=== PATIENT | female | born 1985 | race Caucasian/White ===

== ENCOUNTER 2017-03-18 11:44 | Inpatient (IN) | payer OTHER ==
[~2017-03-18] VITALS: Ht 165.1 cm; Wt 75.9 kg
[2017-03-18 12:45] LABS: BASOPHIL % 0.6 % (0-2); PLATELET COUNT 154 x10^3mcL (130-400); RED CELL DISTRIBUTION WIDTH 13.2 % (11.5-14.5)
[2017-03-18 12:48] LABS: CALCIUM 8.7 mg/dL (8.5-10.1); CARBON DIOXIDE 25.7 mmol/L (21-32); CHLORIDE SERUM 106 mmol/L (98-107); CREATININE SERUM 0.8 mg/dL (0.6-1.0); GFR1 > 60 mL/min; GLUCOSE SERUM 113 mg/dL (74-106); POTASSIUM SERUM 3.6 mmol/L (3.5-5.1); SODIUM SERUM 140 mmol/L (136-145)
[2017-03-18 12:51] LABS: microscopic required? YES; urine erythrocyte TRACE (NEGATIVE)
[2017-03-18 12:53] LABS: ALBUMIN 3.6 g/dL (3.4-5.0); ALKALINE PHOSPHATASE 459 U/L (46-116); ALT/SGPT 621 U/L (14-59); AST/SGOT 444 U/L (15-37); BILIRUBIN TOTAL 2.05 mg/dL (0.20-1.00); LIPASE 170 IU/L (73-393); TOTAL PROTEIN, SERUM 7.8 g/dL (6.4-8.2)
[2017-03-18 16:34] VITALS: BP 117/69
[2017-03-18 18:47] VITALS: BP 117/69
[2017-03-18 21:34] VITALS: BP 116/79
[2017-03-19 05:24] VITALS: BP 114/61
[2017-03-19 07:08] LABS: BASOPHIL % 0.4 % (0-2); PLATELET COUNT 130 x10^3mcL (130-400); RED CELL DISTRIBUTION WIDTH 13.5 % (11.5-14.5)
[2017-03-19 07:35] LABS: ALKALINE PHOSPHATASE 488 U/L (46-116); ALT/SGPT 623 U/L (14-59); AST/SGOT 357 U/L (15-37); BILIRUBIN DIRECT 0.92 mg/dL (0.0-0.2); BILIRUBIN TOTAL 1.5 mg/dL (0.20-1.00); CALCIUM 8.3 mg/dL (8.5-10.1); CARBON DIOXIDE 26.2 mmol/L (21-32); CHLORIDE SERUM 106 mmol/L (98-107); CREATININE SERUM 0.6 mg/dL (0.6-1.0); GFR1 > 60 mL/min; GLUCOSE SERUM 89 mg/dL (74-106); POTASSIUM SERUM 3.5 mmol/L (3.5-5.1); SODIUM SERUM 139 mmol/L (136-145); TOTAL PROTEIN, SERUM 6.6 g/dL (6.4-8.2)
[2017-03-19 07:36] LABS: ALBUMIN 2.8 g/dL (3.4-5.0)
[2017-03-19 13:21] VITALS: BP 106/53
[2017-03-19 21:29] VITALS: BP 113/56
[2017-03-20 05:36] VITALS: BP 110/60
[2017-03-20 07:02] LABS: BASOPHIL % 0.8 % (0-2); PLATELET COUNT 133 x10^3mcL (130-400); RED CELL DISTRIBUTION WIDTH 13.6 % (11.5-14.5)
[2017-03-20 07:10] LABS: ALBUMIN 2.8 g/dL (3.4-5.0); ALKALINE PHOSPHATASE 440 U/L (46-116); ALT/SGPT 476 U/L (14-59); AMYLASE 60 U/L (25-115); AST/SGOT 185 U/L (15-37); BILIRUBIN DIRECT 0.33 mg/dL (0.0-0.2); BILIRUBIN TOTAL 0.71 mg/dL (0.20-1.00); CALCIUM 8.5 mg/dL (8.5-10.1); CARBON DIOXIDE 28.7 mmol/L (21-32); CHLORIDE SERUM 107 mmol/L (98-107); CREATININE SERUM 0.6 mg/dL (0.6-1.0); GFR1 > 60 mL/min; GLUCOSE SERUM 84 mg/dL (74-106); LIPASE 191 IU/L (73-393); SODIUM SERUM 142 mmol/L (136-145); TOTAL PROTEIN, SERUM 6.5 g/dL (6.4-8.2)
[2017-03-20 09:26] VITALS: BP 112/64
[2017-03-20 16:47] VITALS: BP 98/57
[2017-03-20 17:06] VITALS: BP 98/57
== END 2017-03-20 18:40 | disposition home or self-care (01) ==
LOC: ED 11:44 → MU 15:42 → EDBEDREQSVC 15:43 → MU 16:27
PROVIDERS: Emergency Medicine; Internal Medicine Gastroenterology; ADMIT Internal Medicine Pulmonary Disease
PROC: 0FC98ZZ Extirpation of Matter from Common Bile Duct, Via Natural or Artificial Opening Endoscopic (ICD-10-PCS; principal; 2017-03-19 08:30)
DX: K80.50 Calculus of bile duct without cholangitis or cholecystitis without obstruction (principal)
CPT/HCPCS: 43260; C1769; C9113; J0295; J1885; J2270; J2405; J2704; J3490; J7030; J7120; Q0092; Q9967

== ENCOUNTER 2019-02-26 09:02 | Emergency (ER) | payer OTHER ==
[~2019-02-26] VITALS: Ht 165.1 cm; Wt 77.6 kg
[2019-02-26 09:10] VITALS: Ht 165.1 cm; Wt 77.6 kg
[2019-02-26 11:16] LABS: BASOPHIL % 0.6 % (0-2); PLATELET COUNT 180 x10^3mcL (130-400)
[2019-02-26 11:34] LABS: CALCIUM 9.3 mg/dL (8.5-10.1); CHLORIDE SERUM 106 mmol/L (98-107); CREATININE SERUM 0.6 mg/dL (0.6-1.0); GFR1 > 60 mL/min; GLUCOSE SERUM 87 mg/dL (74-106); POTASSIUM SERUM 4.1 mmol/L (3.5-5.1); SODIUM SERUM 142 mmol/L (136-145)
[2019-02-26 11:37] LABS: ALBUMIN 3.6 g/dL (3.4-5.0); ALKALINE PHOSPHATASE 156 U/L (46-116); ALT/SGPT 93 U/L (14-59); AMYLASE 77 U/L (25-115); AST/SGOT 46 U/L (15-37); BILIRUBIN TOTAL 0.39 mg/dL (0.20-1.00); LIPASE 131 IU/L (73-393); TOTAL PROTEIN, SERUM 7.6 g/dL (6.4-8.2)
[2019-02-26 12:38] VITALS: BP 122/63
== END 2019-02-26 12:38 | disposition home or self-care (01) ==
LOC: ED 09:02
PROVIDERS: Specialist
DX: N92.0 Excessive and frequent menstruation with regular cycle (principal); Z98.890 Other specified postprocedural states
CPT/HCPCS: 36415